=== PATIENT | female | born 1995 | race Caucasian/White ===

== ENCOUNTER 2024-11-18 11:40 | Outpatient (CLI) | payer BC, SELFPAY ==
--- NOTE | ~2024-11-18 | XR_ITS ---
CHEST RADIOGRAPH, PA AND LATERAL CLINICAL HISTORY: R05.9 - Cough, unspecified . COMPARISON: 08/12/2017 TECHNIQUE: PA and lateral views of the chest. FINDINGS The cardiomediastinal silhouette is unremarkable. The lungs are clear. Visualized osseous structures and soft tissues are unremarkable. IMPRESSION: No focal infiltrate or effusion. Reviewed, dictated and finalized at location A. TRANSPLANT
== END 2024-11-18 11:41 | disposition home or self-care (01) ==
PROVIDERS: PCP Family Medicine Adolescent Medicine; Visit Provider Nurse Practitioner Family
DX: R05.9 Cough, unspecified (principal)
CPT/HCPCS: 71046

== ENCOUNTER 2025-06-01 19:12 | Emergency (ER) | payer BC, SELFPAY ==
--- NOTE | ~2025-06-01 | XR_ITS ---
XR ankle RT min 3V Ordering provider: MITCHELL Stein History: . pain with trauma . Comparison: February 22, 2010 FINDINGS: BONES: No acute fracture or dislocation. JOINT SPACES: Normal. SOFT TISSUES: Soft tissue swelling over the lateral malleolus. Calcaneal spur. IMPRESSION: No acute osseous abnormality of the right ankle. Reviewed, dictated and finalized at location A.
--- NOTE | 2025-06-01 19:24 | ED.LOWEXIN ---
HPI - Extremity Injury (Lower) General Chief Complaint: Extremity Injury, Lower Stated Complaint: Right Ankle Pain patient presents to the [facility] accompanied by spouse with complaints of right ankle pain, bruising, and swelling that began 2 days ago after patient stepped in a hole and twisted this ankle. Patient reports applying ice and elevating this without relief of symptoms. Patient reports increased pain with weight-bearing and movement. Denies numbness or tingling in foot or toes. Related Data Allergies Allergy/AdvReac Type Severity Reaction Status Date / Time amoxicillin Allergy Intermediate Hives Verified 06/01/25 19:13 Penicillins Allergy Unknown Hives Verified 06/01/25 19:13 Review of Systems Constitutional: Constitutional: Reports no additional constitutional complaints, Denies chills, Denies fatigue, Denies fever(s) and Denies weakness Eyes: Eyes: Reports no additional eye complaints Cardiovascular: Cardiovascular: Reports no additional cardiovascular complaints Respiratory: Respiratory: Reports no additional respiratory complaints Gastrointestinal: Gastrointestinal: Reports no additional gastrointestinal complaints Genitourinary: Genitourinary: Reports no additional female genitourinary complaints Musculoskeletal: Musculoskeletal: Reports as per HPI, Reports arthralgias and Reports joint swelling Integumentary/Breasts: Skin/Breast: Reports as per HPI, Denies breast pain, Denies breast mass, Denies pruritus, Denies rash and Denies skin ulcer Neurologic: Denies numbness and Denies weakness Psychiatric: Psychiatric: Reports no additional psychiatric complaints Endocrine: Endocrine: Reports no additional endocrine complaints Hematologic/Lymphatic: Hematologic/Lymphatic: Reports no additional hematologic/lymphatic complaints Allergic/Immunologic: Allergic/Immunologic: Reports no additional allergic/immunologic complaints [facility] Past Medical History Medical History Asthma DM II (diabetes mellitus, type II), controlled Factor 5 Leiden mutation, heterozygous Polycystic ovarian syndrome Surgical History Surgical History History of placement of ear tubes Hx of tonsillectomy Family History Family History Father Diabetes mellitus Mother Hypertension Endometriosis Breast cancer Social History Social History Smoking status: Never smoker Alcohol intake: current Alcohol use details: occasionally Substance use: never Lack of Transportation: No Lack of Food: Never True Current Housing: I Have Housing Concerned About Future Housing: No Difficulty Paying Gas/Electric Bills: No Difficulty Paying for Meds: No Currently Unemployed: No Education: High School Diploma/GED Difficulty w/ Childcare or Family Care: No Living arrangements: with family 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 Gender identity (if verbalized by the patient): Female Sexual Orientation (if Verbalized by the Patient): Straight or Heterosexual Exam Const: General: healthy appearing and no acute distress Nutritional Appearance: well nourished Orientation/consciousness: patient oriented x3 Limitations: no limitations Resp: Effort & Inspection: normal respiratory effort Auscultation: clear to auscultation bilaterally Cardio: Rate: regular rate Rhythm: regular rhythm Skin: General skin exam: normal color Rashes: no rashes Wounds: no wounds Neuro: General: patient oriented x3 Speech: normal speech Gait exam (Neuro): gait abnormal (limited by pain ) Extrem: Right lower extremity: ankle Details: abnormal to inspection, tenderness Location: of the lateral malleolus and of the medial malleolus, swelling Details: laterally and medially, abnormal ROM and ecchymosis; inspection normal, no unusual warmth, no abrasions, no lacerations, no crepitus, no foreign bodies, no penetrating wound and achilles tendon exam normal Psych: Mental Status: mental status grossly normal Affect: normal affect Attitude: cooperative Course Course Level of Care: Express Care Visit MDM - Extremity Injury (Lower) MDM Narrative Medical decision making narrative: X-rays orders for Evaluation Discharge instructions reviewed with patient, as well as provided in writing per nursing staff. The instructions also include specific and strict return/GO TO THE ER as well as f/u information. All questions have been answered, and the patient deny any further questions with discharge and discharge plan. Differential Diagnosis Differential diagnosis: Likely ankle sprain and strain, fracture of toe and ankle fracture Medical Records Attestation: I reviewed the patient's medical records. Imaging Data Attestation: I personally reviewed and interpreted this imaging study as follows: My impression: no fracture abnormality seen Radiologist's impression: IMPRESSION: No acute osseous abnormality of the right ankle. Reviewed, dictated and finalized at location A. Discharge Plan Discharge Clinical Impression: Mild sprain of right ankle Patient Disposition: Home Condition: Stable Instructions: Antibiotic Form, Ankle Sprain (ED) Additional Instructions: Xray showed no fracture. Minimize activities that aggravate the condition The RICE protocol. Follow the RICE protocol as soon as possible after your injury: Rest your ankle by not walking on it. Ice should be immediately applied to keep the swelling down. It can be used for 20 to 30 minutes, three or four times daily. Do not apply ice directly to your skin. Compression dressings, bandages or uli-wraps will immobilize and support your injured ankle. Elevate your ankle above the level of your heart as often as possible during the first 48 hours. Medication: Nonsteroidal anti-inflammatory drugs (NSAIDs) such as ibuprofen and naproxen can help control pain and swelling. Because they improve function by both reducing swelling and controlling pain, they are a better option for mild sprains than narcotic pain medicines. Please schedule a follow-up visit with your personal physician for further evaluation and treatment within 1week OR If your symptoms persist, change or worsen significantly before you can contact your personal physician then please, without delay, go to the emergency department for further evaluation. Patient Language: Bengali Prescriptions: No Action albuterol sulfate 90 mcg/actuation HFA aerosol inhaler 2 inh inhalation Q4H PRN (Reason: shortness of breath or wheezing) Qty: 8.5 2RF montelukast 10 mg tablet See Rx Instructions .ROUTE .COMPLEX Qty: 90 0RF Dose Instruction: TAKE 1 TABLET BY MOUTH EVERYDAY AT BEDTIME Rx Instructions: TAKE 1 TABLET BY MOUTH EVERYDAY AT BEDTIME fluticasone propionate [Allergy Relief (fluticasone)] 50 mcg/actuation spray,suspension 2 spray intranasal DAILY Qty: 48 3RF Rx Instructions: administer into each nostril albuterol sulfate 2.5 mg /3 mL (0.083 %) solution for nebulization 2.5 mg inhalation Q6H PRN (Reason: shortness of breath) Qty: 180 1RF buspirone 10 mg tablet See Rx Instructions .ROUTE .COMPLEX Qty: 180 1RF Dose Instruction: TAKE 1 TABLET BY MOUTH TWICE A DAY Rx Instructions: TAKE 1 TABLET BY MOUTH TWICE A DAY fluticasone furoate-vilanterol [Breo Ellipta] 200-25 mcg/dose blister with device See Rx Instructions .ROUTE .COMPLEX Qty: 60 4RF Dose Instruction: INHALE 1 PUFF DAILY Rx Instructions: INHALE 1 PUFF DAILY Follow-up/Referrals: Larry Jauregui MD [Primary Care Provider] - Time of Disposition: 19:55
[2025-06-01 19:27] VITALS: BP 136/74; PULSE 90; RESP 20; TEMP 36.9; O2SAT 99
== END 2025-06-01 19:59 | disposition home or self-care (01) ==
PROVIDERS: Emergency Provider Nurse Practitioner Family; PCP Family Medicine Adolescent Medicine
DX: S93.401A Sprain of unspecified ligament of right ankle, initial encounter (principal); W17.2XXA Fall into hole, initial encounter; E11.9 Type 2 diabetes mellitus without complications; D68.51 Activated protein C resistance; E28.2 Polycystic ovarian syndrome; J45.909 Unspecified asthma, uncomplicated
CPT/HCPCS: 73610; 99213; G0463